=== PATIENT | female | born 1990 | race Caucasian/White ===

== ENCOUNTER 2023-04-21 18:24 | Emergency (ER) | payer MEDICAID ==
--- NOTE | 2023-04-21 18:47 | ERPHSYRPT ---
- History of Present Illness Time Seen by Provider: 04/21/23 18:42 Source: patient Exam Limitations: no limitations Physician History: Patient is a patient has an abscess in the right mandibular area that has been present for 5 days. She has been seen in ERs near [place] and has been treated with some IV antibiotics Rocephin. She was later placed on Augmentin at another ER. Her dentist is supposedly writing a referral to oral surgery today. Timing/Duration: day(s) (5) Severity: moderate Modifying Factors: Improves With: eating, movement, ibuprofen Associated Symptoms: other (Severe jaw pain) Allergies/Adverse Reactions: clindamycin Allergy (Verified 04/21/23 18:29) codeine Allergy (Verified 04/21/23 18:29) sertraline [From Zoloft] Allergy (Verified 04/21/23 18:29) Home Medications: Amoxicillin/Potassium Clav [Amox-Clav 875-125 mg Tablet] 1 tab PO BID 04/21/23 [History] - Review of Systems Constitutional: No Fever, No Chills Eyes: No Symptoms Ears, Nose, & Throat: No Symptoms, Mouth Pain Respiratory: No Cough, No Dyspnea Cardiac: No Chest Pain, No Edema, No Syncope Abdominal/Gastrointestinal: No Abdominal Pain, No Nausea, No Vomiting, No Diarrhea Genitourinary Symptoms: No Dysuria Musculoskeletal: No Back Pain, No Neck Pain Skin: No Rash Neurological: No Dizziness, No Focal Weakness, No Sensory Changes Psychological: No Symptoms Endocrine: No Symptoms All Other Systems: Reviewed and Negative - Physical Exam General Appearance: mild distress Eye Exam: PERRL/EOMI, eyes nml inspection Ears, Nose, Throat Exam: normal ENT inspection, TMs normal, pharynx normal, moist mucous membranes, other (Multiple carious teeth throughout the mouth and a large abscess of the first lower molar on the right.) Neck Exam: normal inspection, non-tender, supple - Course Nursing assessment & vital signs reviewed: Yes - Progress Progress: unchanged Medical Desision Making - Risk of complications Low Risk: Low risk of morbidity from additional dx testing or treatment - Departure Departure Disposition: Home Clinical Impression: Dental abscess Condition: Stable Critical Care Time: No Referrals: PUMA CHUA DO [Primary Care Provider] - Follow up/PCP as directed Instructions: Tooth Abscess (DC) Prescriptions: Moxifloxacin HCl 400 mg PO DAILY 10 Days #10 tablet Azithromycin 250 mg [Zithromax 250 MG TABLET] 250 mg PO ZPACK 5 Days #6 tablet
[2023-04-21] MEDS ORDERED: XYLOCAINE VISCOUS 2% 15 ML CUP PO ONE (18:53)
[2023-04-21] MEDS ORDERED: XYLOCAINE VISCOUS 2% 15 ML CUP ONE (18:57)
[2023-04-21 18:58] VITALS: TEMP 98
[2023-04-21] MEDS ORDERED: TORAdol 30 mg Injection IM ONE (19:20)
[2023-04-21] MEDS ORDERED: TORAdol 30 mg Injection ONE (19:23)
[2023-04-21 19:53] VITALS: BP 150/73; PULSE 92; RESP 18; O2SAT 99
== END 2023-04-21 19:52 | disposition home or self-care (01) ==
LOC: ED 18:24
DX: K04.7 Periapical abscess without sinus (principal); R68.84 Jaw pain; Z79.2 Long term (current) use of antibiotics
CPT/HCPCS: 96372; 99283; J1885; A9270-GY